=== PATIENT | male | born 1980 | race Hispanic/Latino ===

== ENCOUNTER 2017-04-26 16:51 | Emergency (ER) | payer OTHER ==
[~2017-04-26] VITALS: Ht 162.6 cm; Wt 68.2 kg
[2017-04-26 16:55] VITALS: BP 149/76
[2017-04-26] MEDS ORDERED: MOTRIN800 MG PO (18:27)
[2017-04-26] MEDS ORDERED: PERCOCET 5/325M1 TAB PO (18:27)
[2017-04-26] MEDS ORDERED: KEFLEX500 MG PO (18:27)
== END 2017-04-26 19:12 | disposition home or self-care (01) | DRG 563 ==
LOC: ED 16:51
PROC: 0HQGXZZ Repair Left Hand Skin, External Approach (ICD-10-PCS; principal; 2017-04-26)
PROC: 0X9K3ZZ Drainage of Left Hand, Percutaneous Approach (ICD-10-PCS; 2017-04-26)
PROC: 2W3KX1Z Immobilization of Left Finger using Splint (ICD-10-PCS; 2017-04-26)
DX: S62.635A Displaced fracture of distal phalanx of left ring finger, initial encounter for closed fracture (principal); S61.305A Unspecified open wound of left ring finger with damage to nail, initial encounter; S60.142A Contusion of left ring finger with damage to nail, initial encounter; W23.0XXA Caught, crushed, jammed, or pinched between moving objects, initial encounter; Y93.89 Activity, other specified; Y92.89 Other specified places as the place of occurrence of the external cause

== ENCOUNTER 2017-04-28 09:28 | Emergency (ER) | payer OTHER ==
[~2017-04-28] VITALS: Ht 162.6 cm; Wt 65.0 kg
[~2017-04-28 09:28] MED LIST: KEFLEX500 MG PO; MOTRIN800 MG PO; PERCOCET 5/325M1 TAB PO
[2017-04-28 10:20] VITALS: BP 125/80
== END 2017-04-28 10:20 | disposition home or self-care (01) | DRG 950 ==
LOC: ED 09:28
DX: S61.215D Laceration without foreign body of left ring finger without damage to nail, subsequent encounter (principal); S62.605D Fracture of unspecified phalanx of left ring finger, subsequent encounter for fracture with routine healing; X58.XXXD Exposure to other specified factors, subsequent encounter

== ENCOUNTER 2017-05-07 13:34 | Emergency (ER) | payer SELFPAY ==
[~2017-05-07] VITALS: Ht 162.6 cm; Wt 59.1 kg
[2017-05-07 14:42] VITALS: BP 134/91
== END 2017-05-07 14:45 | disposition home or self-care (01) | DRG 561 ==
LOC: ED 13:34
DX: S62.605D Fracture of unspecified phalanx of left ring finger, subsequent encounter for fracture with routine healing (principal); X58.XXXD Exposure to other specified factors, subsequent encounter